=== PATIENT | female | born 1990 | race Caucasian/White ===

== ENCOUNTER 2019-07-01 15:52 | Outpatient (CLI) | payer OTHER ==
[~2019-07-01] VITALS: Ht 157.5 cm; Wt 57.7 kg
[~2019-07-01 15:52] MED LIST: FERR325T5 PO; PREN-93 PO
[2019-07-01 16:09] VITALS: Ht 157.5 cm; Wt 57.7 kg
[2019-07-01 16:10] VITALS: BP 114/63; PULSE 78; RESP 19
== END 2019-07-01 18:45 | disposition home or self-care (01) ==
LOC: L-D 15:52 → OBT 15:52
PROVIDERS: ATTEND Specialist
DX: O36.5930 Maternal care for other known or suspected poor fetal growth, third trimester, not applicable or unspecified (principal); Z3A.37 37 weeks gestation of pregnancy
CPT/HCPCS: 76815; 76818; Z7500; G0463